=== PATIENT | male | born 1935 | race Caucasian/White ===

== ENCOUNTER 2020-01-24 09:24 | Emergency (ER) | payer MEDICARE, SELFPAY ==
--- NOTE | ~2020-01-24 | CT_ITS ---
EXAMINATION: CT facial & cervical spine wo DATE: 01/24/2020 10:45 INDICATION: Fall. Facial and neck injury TECHNIQUE: Computed tomography (CT) of the facial bones and maxillofacial region was performed withou t intravenous contrast. Automated exposure control and iterative reconstruction technique were employ ed. Exam dose: 307.82 mGy-cm total exam DLP. COMPARISON: None. FINDINGS: There is straightening of the cervical spine. C1 and C2 are normally aligned and the odonto id process is intact. No fracture or dislocation or locked facet or prevertebral soft tissue swelling. There is degenerativ e disc disease throughout the cervical spine, most pronounced at C5-6. There is degenerative change a t the apophyseal and uncovertebral joints. There are multiple surgical clips of the left cervical area. There is asymmetric fatty density of the left tongue suggesting left tongue atrophy and fat replaceme nt Prominent right sphenoid sinus soft tissue thickening and sclerosis of the sphenoids sinus wall. No facial fracture is evident. The nasal bones and anterior maxillary spine and zygomatic arches are intact no mandible fracture or bone destruction is evident.. IMPRESSION: Extensive degenerative changes of cervical spine Straightening of the cervical spine No cervical spine fracture is evident No evidence of facial bone fracture Reviewed, dictated and finalized at [facility]. Reviewed, dictated and finalized at [facility].
--- NOTE | ~2020-01-24 | CT_ITS ---
EXAMINATION: CT brain wo con DATE: 01/24/2020 10:43 INDICATION: Fall. Head injury. TECHNIQUE: Computed tomography (CT) of the head was performed without intravenous contrast. The mA wa s adjusted according to patient size. Iterative reconstruction technique was employed. Exam dose: 68 1.00 mGy-cm total exam DLP. COMPARISON: None FINDINGS: Bilateral vertebral artery, basilar artery and carotid siphon internal carotid artery calci fications. There is nonspecific diminished attenuation of the cerebral white matter, likely due to ch ronic small vessel ischemic changes. There is prominent central and cortical cerebral atrophy as well as cerebellar atrophy. No intracranial mass lesion or hemorrhage, midline shift or mass effects. No subdural or epidural hem atoma. No skull fracture or bone destruction is evident. There is prominent soft tissue thickening of the right sphenoid sinus with sclerotic thickening of th e wall of this sinus. There is minimal mucoperiosteal thickening of the left maxillary sinus. The par anasal sinuses and mastoid air cells otherwise are normally developed and aerated. IMPRESSION: Cerebral atherosclerosis and chronic small vessel ischemic changes of the cerebral white matter Central and cortical cerebral and cerebellar atrophy No skull fracture or acute intracranial Reviewed, dictated and finalized at [facility]. Reviewed, dictated and finalized at [facility].
--- NOTE | ~2020-01-24 | XR_ITS ---
XR pelvis 1-2V DATE: 01/24/2020 10:47 INDICATION: Fall. Pelvic injury, pain TECHNIQUE: AP pelvis COMPARISON: None FINDINGS: No pelvic fracture or bone destruction is evident. Alignment is intact at the pubic symphys is and sacroiliac joints. IMPRESSION: No pelvic fracture Reviewed, dictated and finalized at [facility]. IMPRESSION: No pelvic fracture
[2020-01-24 09:15] VITALS: BP 90/63; PULSE 82; RESP 25; O2SAT 100
[2020-01-24 09:22] VITALS: PULSE 67
[2020-01-24 10:14] VITALS: BP 105/64; PULSE 74; RESP 22; O2SAT 98
--- NOTE | 2020-01-24 10:15 | ECG_ITS ---
Measurements Intervals [place] Rate: 72 P: 159 VA: 257 QRS: -59 QRSD: 230 T: 114 QT: 507 QTc: 556 Interpretive Statements ELECTRONIC VENTRICULAR PACEMAKER BASELINE ARTIFACT- AVR, V1 NO FURTHER INTERPRETATION IS POSSIBLE ATYPICAL ECG Electronically Signed On 01-24-2020 14:01:03 CDT by Antwon Zheng D.O.
--- NOTE | 2020-01-24 10:30 | PC.NURSE ---
[facility] called due to patient arriving without any updated paperwork of code status. [place] RN states I forgot to call report and will sent that paperwork, I don't know his code status at this time.
[2020-01-24] MEDS: SODIUM CHLORIDE 0.9% IV 500 ML 999 ML IV CONT (10:53)
[2020-01-24 11:08] LABS: Basophils Percent Auto 0.6 % (0.2-1.2); Eosinophils Absolute Auto 0.1 K/mm3 (0-0.3); Eosinophils Percent Auto 1.4 % (0-4.4); Hematocrit 36.2 % (42.0-52.0); Hemoglobin 12.3 g/dL (14.0-18.0); Immature Granulocyte Absolute 0.03 K/mm3 (0.00-0.031); Immature Granulocyte Percent A 0.4 % (0-0.5); Immature Platelet Fraction Pct 1.9 % (0.9-11.2); Lymphocytes Absolute Auto 0.59 K/mm3 (0.9-3.2); Lymphocytes Percent Auto 8.5 % (18.3-44.2); Mean Corpuscular Hemoglobin 28.6 pg (26-34); Mean Corpuscular Volume 84.2 fl (80-100); Mean Platelet Volume 10.4 fl (7.4-10.4); Monocytes Absolute Auto 0.4 K/mm3 (0.1-0.6); Monocytes Percent Auto 6.2 % (2.6-8.5); Neutrophils Absolute Auto 5.8 K/mm3 (1.3-6.7); Neutrophils Percent Auto 82.9 % (45.5-73.1); Platelet Count Result 137 k/mm3 (150-375); Red Cell Distribution Width 14.5 % (11.5-14.5)
[2020-01-24 11:13] VITALS: BP 119/48; PULSE 77; RESP 20; O2SAT 98
--- NOTE | 2020-01-24 11:13 | ED.GENADULT ---
HPI - General Adult General Chief complaint: Unspecified <Jimmy Coates PA-C - Last Filed: 01/24/20 11:41> Stated complaint: right mandible fx <Jimmy Coates PA-C - Last Filed: 01/24/20 11:41> Time Seen by Provider: 01/24/20 10:14 <Jimmy Coates PA-C - Last Filed: 01/24/20 11:41> Source: patient <Jimmy Coates PA-C - Last Filed: 01/24/20 11:41> Mode of arrival: EMS <Jimmy Coates PA-C - Last Filed: 01/24/20 11:41> Limitations: no limitations and dementia <Jimmy Coates PA-C - Last Filed: 01/24/20 11:41> History of Present Illness HPI narrative: Patient is an 84-year-old male who was sent over from long-term for evaluation of facial injuries staff reportedly found with bruising of the face yesterday evening sent in this morning after having x-ray revealing mandible fracture. Patient had unwitnessed fall. Patient in the room on arrival alert and oriented to self and place. Patient denies any pain. Patient lying in the bed in a position of comfort. Patient is easily arousable and answers questions. Records sent with the patient notes the patient was placed in long-term due to debilitation he has bedridden and bedbound. Patient's records also show that he is on Pradaxa <Jimmy Coates PA-C - Last Filed: 01/24/20 11:41> Related Data Allergies/adverse reactions: Allergies Allergy/AdvReac Type Severity Reaction Status Date / Time No Known Allergies Allergy Verified 01/24/20 09:26 <Jimmy Coates PA-C - Last Filed: 01/24/20 11:41> Review of Systems Review of Systems: ROS unobtainable: Yes unobtainable due to medical condition <Jimmy Coates PA-C - Last Filed: 01/24/20 11:41> [facility] Past Medical History Medical History: Medical History (Updated 01/24/20 @ 11:41 by Jimmy Coates PA-C) Anemia Atrial fibrillation Benign prostatic hyperplasia Chronic kidney disease Coronary artery disease Thrombocytopenia <Jimmy Coates PA-C - Last Filed: 01/24/20 11:41> Surgical History Surgical History: Surgical History (Updated 01/24/20 @ 11:17 by Jimmy Coates PA-C) Hx of CABG <Jimmy Coates PA-C - Last Filed: 01/24/20 11:41> Exam Narrative: Exam Narrative: GENERAL: Well-appearing, well-nourished, and in no acute distress. HEAD: Normocephalic, bruising and tenderness to the left side of the face EYES: PERRLA and EOMI. ENT: Nares clear, no rhinorrhea or epistaxis. Mucous membranes moist. Oropharynx without tonsillar hypertrophy exudate or other lesions. NECK: Supple. No adenopathy or masses. CHEST: Clear to auscultation. No respiratory distress. No wheezes rales or rhonchi HEART: Regular rate and rhythm. No murmur heard. Normal peripheral pulses. ABDOMEN: Soft, nontender, nondistended other than an enlarged bladder EXTREMITIES: Normal range of motion. No edema. SKIN: Warm, dry, no rash. Patient with numerous bruises of the extremities NEURO: Patient is able to move all extremities and follow commands. Alert and oriented to person and place does not know the month or year. PSYCH: Normal mood and affect. <Jimmy Coates PA-C - Last Filed: 01/24/20 11:41> Course Course Emergency Course: Patient in the room in no distress. Patient was hydrated in the emergency department. Patient without high risk changes in the blood work. Hemodynamically stable. Gatica cath replaced for urinary retention. Patient has remained comfortable. No high risk changes in the CT imaging or skeletal imaging <Jimmy Coates PA-C - Last Filed: 01/24/20 11:41> Vital Signs Vital signs: Vital Signs Pulse Rate 82 01/24/20 09:15 Respiratory Rate 25 H 01/24/20 09:15 Blood Pressure 90/63 L 01/24/20 09:15 Pulse Oximetry 100 01/24/20 09:15 Pulse Rate 67 01/24/20 12:10 Respiratory Rate 18 01/24/20 12:10 Blood Pressure 118/62 01/24/20 12:10 Pulse Oximetry 98 01/24/20 12:10 <Jimmy Garcia
[2020-01-24 11:20] LABS: Add Urine Microscopic? NO; Appearance Urine Clear (Clear); Bilirubin Urine Negative (Negative); Blood Urine Negative (Negative); Color Urine Yellow (Yellow); Glucose Urine UA Negative (Negative); Ketones Urine Negative (Negative); Leukocyte Esterase Ur Negative LEU/UL (Negative); Nitrate Urine Negative (Negative); Protein Urine Negative (Negative); Specific Grav Ur 1.018 (1.001-1.035); Urobilinogen Urine Negative mg/dL (<2.0)
[2020-01-24 11:27] LABS: Alanine Aminotransferase 9 U/L (4-50); Alkaline Phosphatase 57 U/L (38-126); Anion Gap 10.1 mmol/L (7-16); Aspartate Amino Transferase 23 U/L (17-59); Bilirubin,Total 0.7 mg/dL (0.2-1.3); Blood Urea Nitrogen 47 mg/dL (9-20); Calcium 8.3 mg/dL (8.4-10.2); Carbon Dioxide 23 mmol/L (22-30); Chloride 103 mmol/L (98-107); Estimated CRCL calculation 31 ml/min; Estimated Glomerular Filt Rate 36; Glucose 86 mg/dL (75-110); Potassium 4.1 mmol/L (3.4-5.0); Sodium 132 mmol/L (137-145)
[2020-01-24 11:45] VITALS: BP 115/64; PULSE 68; RESP 14; O2SAT 97
[2020-01-24 12:10] VITALS: BP 118/62; PULSE 67; RESP 18; O2SAT 98
== END 2020-01-24 12:13 ==
PROVIDERS: Emergency Medicine Emergency Medical Services; Emergency Provider General Practice; PCP Internal Medicine
DX: S00.83XA Contusion of other part of head, initial encounter (principal); R33.9 Retention of urine, unspecified; I48.91 Unspecified atrial fibrillation; N18.9 Chronic kidney disease, unspecified; N40.0 Benign prostatic hyperplasia without lower urinary tract symptoms; I25.10 Atherosclerotic heart disease of native coronary artery without angina pectoris; D64.9 Anemia, unspecified; W19.XXXA Unspecified fall, initial encounter
CPT/HCPCS: 36415; 51702; 70450; 70486; 72125; 72170; 80053; 81003; 85025; 85055; 93005; 96360; 99284; J7040

== ENCOUNTER 2020-03-21 15:19 | Emergency (ER) | payer OTHER, MEDICARE, SELFPAY ==
--- NOTE | ~2020-03-21 | XR_ITS ---
EXAMINATION: XR chest 1V portable INDICATION: Altered mental status, history of coronary artery disease TECHNIQUE: Portable AP chest at 1730 hours COMPARISON: None available FINDINGS: Cardiomegaly is noted. There are airspace opacities of the left lung base. No pneumothorax is identified. Median sternotomy wires and mediastinal surgical clips are seen, likely from prior cor onary artery bypass grafting. A dual-lead cardiac pacemaker of the left chest wall ends with leads in expected locations. IMPRESSION: 1. Left basilar airspace opacity, consistent with atelectasis versus pneumonia. 2. Cardiomegaly. Reviewed, dictated and finalized at [facility].
--- NOTE | 2020-03-21 15:32 | ECG_ITS ---
Measurements Intervals [place] Rate: 87 P: RI: 0 QRS: -75 QRSD: 214 T: 111 QT: 481 QTc: 579 Interpretive Statements ELECTRONIC VENTRICULAR PACEMAKER WITH INHIBITION VENTRICULAR PREMATURE COMPLEX BASELINE ARTIFACT- I, II, III, AVR, AVL, AVF NO FURTHER INTERPRETATION IS POSSIBLE ATYPICAL ECG Electronically Signed On 03-21-2020 18:39:43 CDT by Antwon Zheng D.O.
[2020-03-21 15:34] VITALS: BP 103/80; PULSE 76; RESP 15; TEMP 36.3; O2SAT 96
[2020-03-21 15:49] VITALS: BP 121/99; PULSE 126; RESP 18; O2SAT 97
--- NOTE | 2020-03-21 16:53 | ED.AMS ---
HPI - Altered Mental Status General Chief Complaint: Altered Mental Status <Melo Burton MD - Last Filed: 03/21/20 19:09> Stated Complaint: LETHARGY <Melo Burton MD - Last Filed: 03/21/20 19:09> Time Seen by Provider: 03/21/20 15:43 <Melo Burton MD - Last Filed: 03/21/20 19:09> Source: family <Melo Burton MD - Last Filed: 03/21/20 19:09> Mode of arrival: EMS <Melo Burton MD - Last Filed: 03/21/20 19:09> Limitations: clinical condition and dementia <Melo Burton MD - Last Filed: 03/21/20 19:09> History of Present Illness HPI narrative: 85-year-old male Severely demented, does not speak any intelligible words or follow any directions Sent from longterm for evaluation Per his he entered the longterm 3 months ago and she has not seen him since She thinks his general condition is markedly deteriorated since he last was seen He was formally semi-alert but did not recognize her He is now contracted, only moans, and there is some question of whether he could have been either spitting blood out of his mouth or vomiting blood <Melo Burton MD - Last Filed: 03/21/20 19:09> Related Data Home Medications: Home Medications Medication Instructions Recorded Confirmed acetaminophen [Tylenol] 325 mg PO ONCE PRN 03/21/20 atorvastatin 03/21/20 dabigatran etexilate [Pradaxa] mg PO 03/21/20 ferrous sulfate 03/21/20 finasteride mg 03/21/20 folic acid 03/21/20 levothyroxine 03/21/20 metoprolol succinate PO 03/21/20 mirabegron [Myrbetriq] mg PO 03/21/20 tamsulosin mg PO 03/21/20 temazepam mg 03/21/20 tramadol 100 mg PO Q6H 03/21/20 <Melo Burton MD - Last Filed: 03/21/20 19:09> Allergies/Adverse Reactions: Allergies Allergy/AdvReac Type Severity Reaction Status Date / Time No Known Allergies Allergy Verified 03/21/20 15:45 <Melo Burton MD - Last Filed: 03/21/20 19:09> Review of Systems Review of Systems: ROS unobtainable: Yes unobtainable due to medical condition and unobtainable due to mental status <Melo Burton MD - Last Filed: 03/21/20 19:09> [facility] Past Medical History Medical History: Medical History (Updated 03/21/20 @ 20:25 by Keith Hathaway MD) Anemia Atrial fibrillation Benign prostatic hyperplasia Chronic kidney disease Coronary artery disease Thrombocytopenia <Melo Burton MD - Last Filed: 03/21/20 19:09> Surgical History Surgical History: Surgical History (Updated 01/24/20 @ 11:17 by Jimmy Coates PA-C) Hx of CABG <Melo Burton MD - Last Filed: 03/21/20 19:09> Social History Social History: Social History Gender identity (if verbalized by the patient): Male Sexual Orientation (if Verbalized by the Patient): Straight or Heterosexual <Melo Burton MD - Last Filed: 03/21/20 19:09> Exam Const: General: well developed and ill appearing <Melo Burton MD - Last Filed: 03/21/20 19:09> Nutritional Appearance: thin <Melo Burton MD - Last Filed: 03/21/20 19:09> Orientation/consciousness: Other orientation findings (Alert) <Melo Burton MD - Last Filed: 03/21/20 19:09> Other: Frail, contracted, not alert, just moans if moved <Melo Burton MD - Last Filed: 03/21/20 19:09> HENMT: Head: normocephalic and atraumatic <Melo Burton MD - Last Filed: 03/21/20 19:09> General nose exam: No nasal discharge present <Melo Burton MD - Last Filed: 03/21/20 19:09> Face and sinus: face symmetric <Melo Burton MD - Last Filed: 03/21/20 19:09> Mouth: Yes tongue normal <Melo Burton MD - Last Filed: 03/21/20 19:09> Throat: other (No exudate, no erythema) <Melo Burton MD - Last Filed: 03/21/20 19:09> Other: He has an upper denture which was removed there is some dark possibly bloody fluid in his mouth which I cannot tell whether his retained vomitus or whether it is from an oral injury <Melo Burton MD - Last Filed: 03/21/20 19:09> Eyes:
--- NOTE | 2020-03-21 16:55 | PC.NURSE ---
per erp dr carrasquillo, pt will be a candidate for hospice. does not want any further attempts for iv access and or transfusions etc. Charge nurse gissel made aware.
--- NOTE | 2020-03-21 18:49 | PC.NURSE ---
rn spoke with pt and son. no further blood work or urine collection is wanted by family at this time.
--- NOTE | 2020-03-21 18:56 | PC.NURSE ---
hospice at bedside at this time. and son with hospice.
--- NOTE | 2020-03-21 19:11 | PC.NURSE ---
PER DR BARAJAS, HOLDING OF ON LABS UNTIL FAMILY SPEAKS TO HOSPICE. HOSPICE SHOULD BE ARRIVING SHORTLY.
--- NOTE | 2020-03-21 20:58 | PC.NURSE ---
jake called report to eliza at [facility] in [place].
--- NOTE | 2020-03-21 21:04 | PC.NURSE ---
called [facility] to transport patient. ETA [phone]
[2020-03-21 22:31] VITALS: BP 106/59; PULSE 87; RESP 17; O2SAT 98
== END 2020-03-21 22:34 | disposition hospice, home (50) ==
PROVIDERS: Emergency Provider Emergency Medicine; PCP Internal Medicine
DX: F03.90 Unspecified dementia, unspecified severity, without behavioral disturbance, psychotic disturbance, mood disturbance, and anxiety (principal); R40.3 Persistent vegetative state; D64.9 Anemia, unspecified; I48.91 Unspecified atrial fibrillation; N40.0 Benign prostatic hyperplasia without lower urinary tract symptoms; I25.10 Atherosclerotic heart disease of native coronary artery without angina pectoris; N18.9 Chronic kidney disease, unspecified; Z95.1 Presence of aortocoronary bypass graft; Z95.0 Presence of cardiac pacemaker; I49.3 Ventricular premature depolarization
CPT/HCPCS: 71045; 93005; 99283; J7030